=== PATIENT | male | born 1970 | race African-American/Black ===

== ENCOUNTER 2019-01-10 14:43 | Emergency (ER) | payer SELFPAY ==
[2019-01-10] MEDS ORDERED: ASPIRIN 81 MG TABLET, CHEWABLE PO ONE (16:19)
[2019-01-10 16:52] LABS: ABSOLUTE EOSINOPHILS # (AUTO) 0.2 10^3/uL (0.0-0.6); ABSOLUTE LYMPHOCYTES (AUTO) 2.2 10^3/uL (0.5-4.7); ABSOLUTE MONOCYTES (AUTO) 0.8 10^3/uL (0.1-1.4); ABSOLUTE NEUT (AUTO) 4.9 10^3/uL (1.7-8.2); BASOPHILS % (AUTO) 0.5 % (0-2); HEMATOCRIT 39.8 % (37.9-51.0); HEMOGLOBIN 13.2 g/dL (13.5-17.0); LYMPHOCYTES % (AUTO) 27.2 % (13-45); MEAN CORPUSCULAR HGB CONC 33.3 g/dL (32.0-36.0); MEAN CORPUSCULAR VOLUME 90 fl (80-97); MONOCYTES % (AUTO) 9.3 % (3-13); PLATELET COUNT 200 10^3/uL (150-450); RED BLOOD COUNT 4.41 10^6/uL (4.35-5.55); RED CELL DISTRIBUTION WIDTH 14.6 % (11.5-14.0); TOTAL CELLS COUNTED % (AUTO) 100 %; WHITE BLOOD COUNT 8.2 10^3/uL (4.0-10.5)
--- NOTE | 2019-01-10 16:59 | RADIOLOGY REPORT (SQ) ---
EXAM DESCRIPTION: CHEST SINGLE VIEW COMPLETED DATE/TIME: 01/10/2019 4:43 pm REASON FOR STUDY: chest pain, SOB COMPARISON: 06/19/2013 EXAM PARAMETERS: NUMBER OF VIEWS: One view. TECHNIQUE: Single frontal radiographic view of the chest acquired. RADIATION DOSE: NA LIMITATIONS: None. FINDINGS: LUNGS AND PLEURA: No opacities, masses or pneumothorax. No pleural effusion. MEDIASTINUM AND HILAR STRUCTURES: No masses. Contour normal. HEART AND VASCULAR STRUCTURES: Heart normal in size. Normal vasculature. BONES: No acute findings. HARDWARE: None in the chest. OTHER: No other significant finding. IMPRESSION: NO ACUTE RADIOGRAPHIC FINDING IN THE CHEST. TECHNICAL DOCUMENTATION: JOB ID: [id number] [employer]- All Rights Reserved Reading location - IP/workstation name: [email or web address]
[2019-01-10 17:15] LABS: ALANINE AMINOTRANSFERASE 33 U/L (21-72); ALBUMIN 4.9 g/dL (3.5-5.0); ALKALINE PHOSPHATASE 78 U/L (38-126); ANION GAP 11 (5-19); ASPARTATE AMINO TRANSFERASE 27 U/L (17-59); BILIRUBIN,DIRECT 0.3 mg/dL (0.0-0.4); BILIRUBIN,TOTAL 0.4 mg/dL (0.2-1.3); BLOOD UREA NITROGEN 17 mg/dL (7-20); CARBON DIOXIDE 27 mmol/L (22-30); CHLORIDE 106 mmol/L (98-107); CREATINE KINASE 222 U/L (55-170); GLUCOSE 92 mg/dL (75-110); POTASSIUM 5.1 mmol/L (3.6-5.0); SODIUM 144.1 mmol/L (137-145); TOTAL PROTEIN 7.9 g/dL (6.3-8.2)
[2019-01-10 17:27] LABS: CREATINE KINASE MB 2.14 ng/mL (<4.55)
[2019-01-10 17:28] LABS: TROPONIN I < 0.012 ng/mL
[2019-01-10] MEDS ORDERED: MORPHINE SULFATE 10 MG/ML INJ IV ONE (19:14)
[2019-01-10] MEDS ORDERED: ONDANSETRON HCL INJ/PF 4 MG/2 ML SDV IV ONE (19:14)
--- NOTE | 2019-01-10 19:14 | ER Document Report ---
ED General - General Chief Complaint: Chest Pain Stated Complaint: CHEST PAIN, ARM PAIN Time Seen by Provider: 01/10/19 16:13 Primary Care Provider: HARSHA MOCK [NO LOCAL MD] - Follow up as needed Mode of Arrival: Ambulatory Information source: Patient Notes: 48-year-old male with hypertension presents with complaint of palpitations and chest tightness that started 5 hours prior to arrival while driving. Patient states that he had a sudden onset of feeling like "my heart was going to leap out of my chest" associated with chest tightness. Patient states the tightness changed to pressure that has been constant for the last 5 hours but has improved. Patient did have associated lightheadedness, shortness of breath. Patient denies prior similar symptoms. Patient admits to drinking one beer per day but denies any alcohol and drug use. He denies any changes in medication, new supplements or heavy caffeine intake. Patient is adopted and does not know his family history. TRAVEL OUTSIDE OF THE [place] IN LAST 30 DAYS: No - HPI Onset: Just prior to arrival - Related Data Allergies/Adverse Reactions: No Known Allergies Allergy (Verified 01/10/19 14:45) Past Medical History - Social History Smoking Status: Never Smoker Family History: Reviewed & Not Pertinent Patient has suicidal ideation: No Patient has homicidal ideation: No - Past Medical History Cardiac Medical History: Reports: Hx Hypertension Renal/ Medical History: Denies: Hx Peritoneal Dialysis Past Surgical History: Reports: Hx Orthopedic Surgery - left hip replacement - Immunizations Hx Diphtheria, Pertussis, Tetanus Vaccination: No Physical Exam - Vital signs Vitals: Temp Pulse Resp BP Pulse Ox 98.5 F 55 L 18 156/87 H 99 01/10/19 14:56 01/10/19 14:56 01/10/19 14:56 01/10/19 14:56 01/10/19 14:56 Course - Re-evaluation Re-evalutation: 01/11/19 00:11 Laboratory 01/10/19 01/10/19 01/10/19 16:26 16:26 16:26 WBC 8.2 RBC 4.41 Hgb 13.2 L Hct 39.8 MCV 90 MCH 30.0 MCHC 33.3 RDW 14.6 H Plt Count 200 Seg Neutrophils % 60.0 Lymphocytes % 27.2 Monocytes % 9.3 Eosinophils % 3.0 Basophils % 0.5 Absolute Neutrophils 4.9 Absolute Lymphocytes 2.2 Absolute Monocytes 0.8 Absolute Eosinophils 0.2 Absolute Basophils 0.0 D-Dimer Sodium 144.1 Potassium 5.1 H Chloride 106 Carbon Dioxide 27 Anion Gap 11 BUN 17 Creatinine 0.78 Est GFR ( Amer) > 60 Est GFR (Non-Af Amer) > 60 Glucose 92 Calcium 10.0 Magnesium Total Bilirubin 0.4 Direct Bilirubin 0.3 Neonat Total Bilirubin Not Reportable Neonat Direct Bilirubin Not Reportable Neonat Indirect Bili Not Reportable AST 27 ALT 33 Alkaline Phosphatase 78 Creatine Kinase 222 H CK-MB (CK-2) 2.14 Troponin I < 0.012 Total Protein 7.9 Albumin 4.9 TSH 01/10/19 01/10/19 01/10/19 16:26 16:26 16:26 WBC RBC Hgb Hct MCV MCH MCHC RDW Plt Count Seg Neutrophils % Lymphocytes % Monocytes % Eosinophils % Basophils % Absolute Neutrophils Absolute Lymphocytes Absolute Monocytes Absolute Eosinophils Absolute Basophils D-Dimer 1.16 H Sodium Potassium Chloride Carbon Dioxide Anion Gap BUN Creatinine Est GFR ( Amer) Est GFR (Non-Af Amer) Glucose Calcium Magnesium 2.1 Total Bilirubin Direct Bilirubin Neonat Total Bilirubin Neonat Direct Bilirubin Neonat Indirect Bili AST ALT Alkaline Phosphatase Creatine Kinase CK-MB (CK-2) Troponin I Total Protein Albumin TSH 2.12 01/10/19 21:00 WBC RBC Hgb Hct MCV MCH MCHC RDW Plt Count Seg Neutrophils % Lymphocytes % Monocytes % Eosinophils % Basophils % Absolute Neutrophils Absolute Lymphocytes Absolute Monocytes Absolute Eosinophils Absolute Basophils D-Dimer Sodium Potassium Chloride Carbon Dioxide Anion Gap BUN Creatinine Est GFR ( Amer) Est GFR (Non-Af Amer) Glucose Calcium Magnesium Total Bilirubin Direct Bilirubin Neonat Total Bilirubin Neonat Direct Bilirubin Neonat Indirect Bili AST ALT Alkaline Phosphatase Creatine Kinase CK-MB (CK-2) Troponin I < 0.012 Total Protein Albumin TSH Chest X-Ray 01/10/19 16:19 IMPRESSION: NO ACUTE RADIOGRAPHIC FINDING IN THE CHEST. Chest/Abdomen CTA 01/10/19 20:19 IMPRESSION: Negative for pulmonary arterial embolus. TECHNICAL DOCUMENTATION: Quality ID # 436: Final reports with documentation of one or more dose reduction techniques (e.g., Automated exposure control, adjustment of the mA and/or kV according to patient size, use of iterative reconstruction technique) copyright 2011 [employer]- All Rights Reserved Temp Pulse Resp BP Pulse Ox 98.2 F 55 L 12 143/86 H 100 01/10/19 22:00 01/10/19 14:56 01/10/19 22:00 01/10/19 22:00 01/10/19 22:00 48-year-old male presents with a sudden onset of chest pain, palpitations that occurred 4 hours prior to arrival and has been constant. Vital signs reviewed and within normal limits upon arrival. Patient does not appear toxic or dehydrated. He is in no acute distress. CBC, CMP, cardiac enzymes (including delta troponin), TSH and magnesium are within normal limits. Patient did have an elevated d-dimer which prompted a CTA which was negative for pulmonary embolus. HEART Score: History-0 ECG-0 Age-1 Risk Factors-1 Troponin Total: 2 If HEART score is = 3 AND both troponin measurements are normal, the 30 day risk of a major adverse cardiac event (all-cause mortality, myocardial infarction or need for coronary revascularization) is < 1% (Sensitivity 100%, NPV 100%). Chest pain in a patient without evidence of cardiac or other serious etiology on workup today. I discussed with patient that, based on their age, risk factors and emergency department testing today, the likelihood that their symptoms are related to a heart attack is very low (estimated risk of heart attack or over the next 30 days of less than 1%). The patient demonstrates decision making capacity and has verbalized an understanding of these risks to me. Based on this, the patient has chosen to follow-up as an outpatient. Usual chest pain return precautions reviewed. The patient states understanding and agreement with this plan. Patient was evaluated and treated as appropriate for the patient's presenting symptoms and complaint, with consideration of any critical or life threatening conditions that may be associated with their obtained history and exam as noted above. All results were discussed with patient and. His and family members who are at the bedside. Patient was provided copies of his imaging and lab work that was performed today. Patient provided the opportunity to ask questions, and express concerns. Patient was educated on treatments based on their presumed diagnosis as noted above. At this time we will discharge the patient with return precautions and follow-up recommendations. Verbal discharge instructions given a the bedside. Medication warnings reviewed. Patient is in agreement with this plan and has verbalized understanding of return precautions. After careful consideration I feel that that patient can be safely discharged from the emergency department, they were advised to followup with a primary care physician in 2-3 days. Dictation on this chart was performed using voice recognition software and may result in unintended grammatical, spelling, syntax or errors. - Vital Signs Vital signs: Temp Pulse Resp BP Pulse Ox 98.2 F 55 L 12 143/86 H 100 01/10/19 22:00 01/10/19 14:56 01/10/19 22:00 01/10/19 22:00 01/10/19 22:00 - Laboratory Result Diagrams: 01/10/19 16:26 01/10/19 16:26 Laboratory results interpreted by me: 01/10/19 01/10/19 01/10/19 16:26 16:26 16:26 Hgb 13.2 L RDW 14.6 H D-Dimer 1.16 H Potassium 5.1 H Creatine Kinase 222 H - Diagnostic Test Radiology reviewed: Image reviewed, Reports reviewed - EKG Interpretation by Me Rate: Normal Rhythm: NSR Casanova/QRS: LAHB/LAFB When compared to previous EKG there are: No significant change Discharge - Discharge Clinical Impression: Palpitations, Elevated blood pressure reading, Elevated d-dimer Chest pain Qualifiers: Chest pain type: unspecified Qualified Code(s): R07.9 - Chest pain, unspecified Condition: Good Disposition: HOME, SELF-CARE Instructions: Chest Pain of Unclear Cause ([facility]), Palpitations (Irregular or Rapid Heartrate) ([facility]) Additional Instructions: You were seen today for chest pain. The exact cause of your pain is unclear. However, based on your cardiac enzyme testing, chest x-ray, and EKG it does not appear that it is from an immediately life-threatening cause at this time. Although your testing here is normal is critical that you follow-up with your primary care physician for continued evaluation of this chest pain and possible stress testing. I recommended you see your physician within the next 24-48 hours to be evaluated for consideration of a stress test. Please return to emergency department immediately if you have worsening of your chest pain, shortness of breath, vomiting, become unable to exert yourself due to pain or difficulty breathing, you pass out, or have any pain that radiates into your arms, jaw, or back. Please also return if you have any additional symptoms that are concerning to you. Forms: Elevated Blood Pressure Referrals: LOCALMD,NO [NO LOCAL MD] - Follow up as needed
--- NOTE | 2019-01-10 20:42 | ER Document Report ---
Entered by DANIEL TERAN SCRIBE 01/10/192026 Acting as scribe for:LEATHA BARNES DO ED Medical Screen (RME) - General Chief Complaint: Chest Pain Stated Complaint: CHEST PAIN, ARM PAIN Time Seen by Provider: 01/10/19 16:13 Primary Care Provider: HARSHA MOCK [NO LOCAL MD] - Follow up as needed Mode of Arrival: Ambulatory Information source: Patient Notes: Patient is a 48 year old male presenting to the emergency department complaining of chest pain onset this morning. Patient states he was at work when he had a sudden onset of heart palpitations further described as his heart racing; "felt like like my heart was going to jump out of my chest". He states he proceeded to sit down then developed a sharp pain that started at the top of his head and radiated into his left neck and shoulder. He states he proceeded to sit down then developed light headedness and chest pain described as "something sitting on my chest". He also complains of nausea and a small amount of diaphoresis. Patient reports having a stress test done approximately 10 years ago. I have greeted and performed a rapid initial assessment of the patient. A compr ehensive ED assessment and evaluation of the patient, analysis of test results, and completion of the medical decision making process will be conducted by additional ED providers. GENERAL: Alert, interacts well. No acute distress. HEAD: Normocephalic, atraumatic. EYES: Pupils equal, round, and reactive to light. Extraocular movements intact. ENT: Oral mucosa moist, tongue midline. NECK: Full range of motion. Supple. Trachea midline. LUNGS: Clear to auscultation bilaterally, no wheezes, rales, or rhonchi. No respiratory distress. HEART: Regular rate and rhythm. No murmurs, gallops, or rubs. EXTREMITIES: Moves all 4 extremities spontaneously. NEUROLOGICAL: Alert and oriented x3. Normal speech. PSYCH: Normal affect, normal mood. SKIN: Warm, dry, normal turgor. No rashes or lesions noted. TRAVEL OUTSIDE OF THE [place] IN LAST 30 DAYS: No - Related Data Allergies/Adverse Reactions: No Known Allergies Allergy (Verified 01/10/19 14:45) Past Medical History - Past Medical History Cardiac Medical History: Reports: Hx Hypertension Renal/ Medical History: Denies: Hx Peritoneal Dialysis Past Surgical History: Reports: Hx Orthopedic Surgery - left hip replacement - Immunizations Hx Diphtheria, Pertussis, Tetanus Vaccination: No Physical Exam - Vital signs Vitals: Temp Pulse Resp BP Pulse Ox 98.5 F 55 L 18 156/87 H 99 01/10/19 14:56 01/10/19 14:56 01/10/19 14:56 01/10/19 14:56 01/10/19 14:56 Course - Vital Signs Vital signs: Temp Pulse Resp BP Pulse Ox 98.5 F 55 L 18 156/87 H 96 01/10/19 14:56 01/10/19 14:56 01/10/19 14:56 01/10/19 14:56 01/10/19 16:19 - Laboratory Result Diagrams: 01/10/19 16:26 01/10/19 16:26 Laboratory results interpreted by me: 01/10/19 01/10/19 01/10/19 16:26 16:26 16:26 Hgb 13.2 L RDW 14.6 H D-Dimer 1.16 H Potassium 5.1 H Creatine Kinase 222 H Doctor's Discharge - Discharge Referrals: LOCALMD,NO [NO LOCAL MD] - Follow up as needed I personally performed the services described in the documentation, reviewed and edited the documentation which was dictated to the scribe in my presence, and it accurately records my words and actions.
--- NOTE | 2019-01-10 21:46 | RADIOLOGY REPORT (SQ) ---
EXAM DESCRIPTION: CT CHEST ANGIOGRAPHY WITHOUT THEN WITH IV CONTRAST COMPLETED DATE/TME: 01/10/2019 20:19 CLINICAL HISTORY: 48 years, Male, Palpitations, elevated dimer COMPARISON: Correlation with recent chest x-ray performed earlier same day at 4:53 pm TECHNIQUE: Axial images through the chest were performed after the administration of intravenous contrast using a pulmonary embolus protocol. MIPS were performed. Images stored on PACS. All CT scanners at this facility use dose modulation, iterative reconstruction, and/or weight based dosing when appropriate to reduce radiation dose to as low as reasonably achievable (ALARA). [facility]: Dose Right [facility]: CareDose [facility]: Dose Right [facility]: Teradose 4D [facility]: Tomorrow LIMITATIONS: None. FINDINGS: No pulmonary arterial embolus identified. Non aneurysmal thoracic aorta. No pericardial effusion. No mediastinal lymphadenopathy. Patent central airway. No focal lung consolidation. No pleural effusion. No pneumothorax. Incidental gas foci (measuring 8 mm) projecting in the right posterolateral aspect of the upper trachea at the level of the thoracic inlet, most likely representing a small tracheal diverticulum. Soft tissues are within normal limits. No acute osseous finding. Multilevel thoracic spine osteophytes. Partially visualized abdomen shows multiple scattered and incompletely characterized hypodense foci throughout the liver (largest measuring 1.2 cm in the right hepatic lobe). Two punctate nonobstructing left renal calculi are identified. IMPRESSION: Negative for pulmonary arterial embolus. TECHNICAL DOCUMENTATION: Quality ID # 436: Final reports with documentation of one or more dose reduction techniques (e.g., Automated exposure control, adjustment of the mA and/or kV according to patient size, use of iterative reconstruction technique) copyright 2011 [employer]- All Rights Reserved
[2019-01-10 22:22] VITALS: BP 143/86
--- NOTE | 2019-01-11 01:30 | EKG REPORT ---
SEVERITY:- ABNORMAL ECG - SINUS RHYTHM LEFT ANTERIOR FASCICULAR BLOCK NONSPECIFIC T ABNORMALITIES, INFERIOR LEADS : Confirmed by: Charlene Arrington MD 11-Jan-2019 01:28:52
== END 2019-01-10 22:00 | disposition home or self-care (01) ==
LOC: ER 14:43
DX: R07.9 Chest pain, unspecified (principal); I10 Essential (primary) hypertension; R00.2 Palpitations; R79.89 Other specified abnormal findings of blood chemistry; R51 Headache; M54.2 Cervicalgia; M25.512 Pain in left shoulder; R42 Dizziness and giddiness; R11.0 Nausea; R61 Generalized hyperhidrosis
CPT/HCPCS: 36415; 71045; 71275; 80053; 82550; 82553; 83735; 84443; 84484; 85025; 85379; 93005; 93010; 99285